=== PATIENT | female | born 1930 | race Caucasian/White ===

== ENCOUNTER 2018-04-21 14:57 | Inpatient (IN) | payer OTHER ==
[2018-04-21] MEDS ORDERED: NS 500 ML IV ONE (15:00)
--- NOTE | 2018-04-21 15:06 | EDPHY ---
H & P Time Seen by Provider: 04/21/18 14:59 HPI/ROS: HPI Stroke alert. 87-year-old female by ambulance. This patient was at a congregation service. Last seen normal at 1:10 p.m.. Bystanders report left-sided weakness, speech difficulty and confusion. On arrival to the emergency department per EMS she is clearly improving. Blood glucose per EMS 152. EMS also reports the patient is in atrial fibrillation. She is not on anticoagulation medications. She does not have a known history of atrial fibrillation. ROS: Constitutional: No fever, no chills. As above. Eyes: No discharge. No changes in vision. ENT: No sore throat. No nasal congestion or rhinorrhea. Respiratory: No cough. No shortness of breath. Cardiac: No chest pain, no palpitations. Gastrointestinal: No abdominal pain, no vomiting, no diarrhea. Genitourinary: No hematuria. No dysuria or increased frequency with urination. Musculoskeletal: No back pain. No neck pain. No myalgias or arthralgias. Skin: No rashes. Neurological: No headache. As above. Past medical history: Prior stroke. Takes Plavix. Osteoporosis, spinal surgeries. Social history: Nonsmoker. No alcohol. Has a daughter who lives nearby. Physical Exam: General Appearance: Alert, no distress. This patient is responding to questions appropriately and in full sentences. This patient appears well- hydrated and well-nourished. Eyes: Pupils equal and round no pallor or injection. No lid edema, erythema or injection. ENT, Mouth: Mucous membranes are moist. The pharyngeal tissues are unremarkable. No edema or swelling. No asymmetry suggestive of abscess. No erythema or exudates. No tongue lacerations or abrasions. Respiratory: There are no retractions, lungs are clear to auscultation with good air movement bilaterally. Cardiovascular: Regular rate and rhythm. No murmur. Gastrointestinal: Abdomen is soft and nontender, no masses, bowel sounds normal. No focal tenderness at McBurney's point. No See sign. Neurological: Motor sensory function is grossly intact. Cranial nerves are normal. Cerebellar function is normal. Skin: Warm and dry, no rashes. Musculoskeletal: Neck is supple and nontender. Extremities are symmetrical. All joints range without pain or impingement. Psychiatric: No agitation. No depression. Database: EKG: EKG time is 3:51 p.m.; EKG shows a narrow complex atrial fibrillation with a ventricular rate of 126. Left ventricular hypertrophy noted by voltage. The QRS , intervals are within normal limits. QT interval is as prolonged at 5:29 a.m. Corrected. Some T-wave flattening in the anterior leads. There are no ST-T wave changes indicative of ischemic or injury pattern. No evidence of right heart strain. Interpreted by me. Imaging: CT head without contrast: Old infarcts. No acute pathology. Results were discussed with staff radiologist Dr. Karsten Paniagua. CTA of head and neck: Essentially negative. Please see report by Dr. Wagner Urbano. Procedures: Emergency department course: Triage vital signs reviewed. I met this patient immediately on arrival. Initial neurologic exam demonstrates mild left upper extremity weakness and left lower extremity weakness. Patient's speech and cognition close to baseline at this time. Patient is currently not a tPA candidate. Patient otherwise stable for CT imaging as noted above. She was sent for CT immediately after my initial evaluation. 3:30 p.m., the patient is back in her room. Her daughter is currently at her bedside. The daughter explained to me that she spoke to the patient at approximately 1:10 p.m. While the patient was at congregation. The daughter reports that she was having slurred speech and word-finding difficulty. This is similar to how she presented with her previous stroke. At this time, the patient has no focality and repeat neurologic Assessment. She is responding to questions appropriately and in full sentences with clear speech. The daughter denies significant sequelae from her previous CVA. 4:00 p.m., spoke with on-call neurologist Dr. Suarez. Case discussed in detail with him. He requests a diffusion-weighted MRI of the brain be obtained. This will be ordered. 4:10 p.m., spoke with on-call hospitalist Dr. Hank Sandhu. Case discussed in detail. He accepts this patient for admission. He will coordinate neurology consultation. The patient's remaining emergency department course under my care has been uneventful. Repeat neurologic Assessment at 4:15 p.m. Is nonfocal. She was admitted to the hospitalist service in stable condition. Hospitalist to follow up on results of MRI. This is pending currently. Differential Diagnosis: The differential diagnosis on this patient includes but is not limited to CVA, TIA, dehydration, hyponatremia, hypoglycemia. This represents a partial list of diagnoses considered. These considerations are based on history, physical exam, past history, reassessment and diagnostic testing. Constitutional: Initial Vital Signs Heart Rate 105 H 04/21/18 15:26 Respiratory Rate 18 04/21/18 15:26 Blood Pressure 133/87 H 04/21/18 15:26 O2 Sat (%) 92 04/21/18 15:26 O2 Delivery Mode Room Air Allergies/Adverse Reactions: amoxicillin Allergy (Verified 04/21/18 16:00) Home Medications: Medication Instructions Recorded Albuterol [Proventil Inhaler HFA 2 puffs IH 04/21/18 (*)] Atenolol [Tenormin 50 mg (*)] 50 mg PO DAILY 04/21/18 Atorvastatin Calcium [Lipitor 40 40 mg PO DAILY 04/21/18 mg (*)] Clopidogrel Bisulfate [Plavix (*)] 75 mg PO DAILY 04/21/18 Flunisolide Nasal [Nasarel Nasal 2 sprays NS BID 04/21/18 [place] (RX)] Furosemide [Lasix 20 MG (*)] 20 mg PO DAILY 04/21/18 Hydrocodone/Acetaminophen [Centre 1 each PO BID PRN 04/21/18 5/325 (*)] Lisinopril [Zestril 20 mg (*)] 20 mg PO DAILY 04/21/18 Multivitamins [Multivitamin (*)] 1 each PO DAILY 04/21/18 Ranitidine HCl [Zantac] 150 mg PO HS 04/21/18 Medical Decision Making - Data Points Laboratory Results: Laboratory Results 04/22/18 04:18 04/22/18 04:18 Medications Given: Acetaminophen (Tylenol) 650 mg PO Q4HRS PRN PRN Reason: Pain, Mild/Fever, Can Take PO Stop: 10/18/18 16:32 Last Admin: 04/22/18 20:26 Dose: 650 mg Albuterol (Proventil Inhaler) 2 puffs IH [facility] Stop: 10/18/18 20:59 Last Admin: 04/22/18 22:03 Dose: 2 puffs Atorvastatin Calcium (Lipitor) 40 mg PO DAILY [facility] Stop: 10/19/18 08:59 Last Admin: 04/22/18 09:03 Dose: 40 mg Clopidogrel Bisulfate (Plavix) 75 mg PO DAILY [facility] Stop: 10/19/18 08:59 Last Admin: 04/22/18 09:04 Dose: 75 mg Enoxaparin Sodium (Lovenox) 40 mg SC DAILY [facility] Stop: 10/19/18 08:59 Last Admin: 04/22/18 09:04 Dose: 40 mg Famotidine (Pepcid) 20 mg PO HS [facility] Stop: 10/18/18 20:59 Last Admin: 04/22/18 20:29 Dose: 20 mg Flunisolide (Nasarel Nasal [place]) 2 sprays NS BID [facility] Stop: 10/18/18 20:59 Last Admin: 04/22/18 21:56 Dose: 2 sprays Furosemide (Lasix) 20 mg PO DAILY [facility] Stop: 10/19/18 08:59 Last Admin: 04/22/18 09:03 Dose: 20 mg Lisinopril (Zestril) 20 mg PO DAILY [facility] Stop: 10/19/18 08:59 Last Admin: 04/22/18 09:03 Dose: 20 mg Multivitamins (Tab-A-Jose Raul) 1 each PO DAILY [facility] Stop: 10/19/18 08:59 Last Admin: 04/22/18 09:03 Dose: 1 each Discontinued Medications Sodium Chloride (Ns) 500 mls @ 500 mls/hr IV EDNOW ONE PRN Reason: Protocol Stop: 04/21/18 15:59 Last Admin: 04/21/18 16:09 Dose: 500 mls Sodium Chloride (Ns) 500 mls @ 0 mls/hr IV ONCE ONE PRN Reason: Wide Open Stop: 04/23/18 00:01 Last Admin: 04/23/18 01:14 Dose: Not Given Metoprolol Tartrate (Lopressor) 12.5 mg PO BID ALAN Stop: 10/18/18 20:59 Last Admin: 04/22/18 09:03 Dose: 12.5 mg Metoprolol Tartrate (Lopressor) 12.5 mg PO ONCE ONE Stop: 04/21/18 18:15 Last Admin: 04/21/18 18:36 Dose: 12.5 mg Metoprolol Tartrate (Lopressor) 25 mg PO BID ALAN Stop: 10/19/18 20:59 Last Admin: 04/22/18 20:27 Dose: 25 mg Metoprolol Tartrate (Lopressor) 12.5 mg PO ONCE ONE Stop: 04/22/18 21:46 Last Admin: 04/22/18 21:49 Dose: 12.5 mg Point of Care Test Results: Chemistry 04/21/18 15:03 POC Sodium 135 mEq/L mEq/L (135-145) POC Potassium 3.9 mEq/L mEq/L (3.3-5.0) POC Chloride 97 mEq/L mEq/L (97-110) POC BUN 15 mg/dL mg/dL (7-23) POC Creatinine 1.1 mg/dL H mg/dL (0.6-1.0) POC Glucose 131 mg/dL H mg/dL (70-100) ISTAT H&H 04/21/18 15:03 POC Hgb 13.9 gm/dL gm/dL (12.6-16.3) POC Hct 41 % % (38-47) Departure - Departure Disposition: [facility] Inpatient Acute Clinical Impression: TIA (transient ischemic attack), Possible CVA
[2018-04-21 15:16] LABS: PLATELET COUNT 285 10^3/uL (150-400)
[2018-04-21] MEDS ORDERED: ONDANSETRON 4 MG/2 ML VIAL IVP PRN (16:33)
[2018-04-21] MEDS ORDERED: ONDANSETRON DISINTEGRATING 4 MG TAB PO PRN (16:33)
--- NOTE | 2018-04-21 17:03 | GHP ---
DATE OF ADMISSION: 04/21/2018 CHIEF COMPLAINT: Possible stroke. HISTORY OF PRESENT ILLNESS: This is an 87-year-old female with a history of multiple CVAs in the pas t, who presents with symptoms that she was concerned represented a stroke. She felt a little clumsy this morning. She then went to scientology. The pizza cook noticed that she was having trouble speaking, malorie s, she called 911. She denies any confusion. She just says she was unable to get the words out. Sh honorio did not feel as though she were weak or clumsy on one side. Specifically, she just felt as though she were clumsy in general. Her initial blood glucose was 150 by EMS. Her symptoms resolved complet roseann shortly after arriving in the emergency department. These symptoms are similar to her previous s trokes. She did receive tPA approximately in 2016 for stroke. She is currently taking Plavix, she h ad previously been on both aspirin and Plavix, however, self discontinued the aspirin after multiple episodes of epistaxis. She has no history of atrial fibrillation. She has had monitors in the past. Looking for this, however, it had never been identified. She is not currently having any chest diana n or shortness of breath. PAST MEDICAL/SURGICAL HISTORY: 1. History of multiple CVAs. 2. Osteoporosis. 3. Degenerative disk disease status post 5 spinal surgeries. 4. Hard of hearing. MEDICATIONS: Please see medication reconciliation. ALLERGIES: Amoxicillin. SOCIAL HISTORY: She drinks wine occasionally. She has never smoked. FAMILY HISTORY: Multiple vascular diseases in her family. REVIEW OF SYSTEMS: 10-point review of systems is conducted and is negative except per HPI. PHYSICAL EXAM: VITAL SIGNS: Blood pressure 124/90, heart rate 109, respiration rate 16, saturating 94% on room air. GENERAL: The patient is a very pleasant female who is resting comfortably, in bed. No acute distress. HEENT: Shows her to be normocephalic, atraumatic. CARDIOVASCULAR: Shows her to be irregularly irregular. There are no murmurs, rubs, or gallops. PULMONARY: Shows her to be br eathing comfortably. Her lungs are clear to auscultation bilaterally. ABDOMEN: Soft, nontender, no ndistended. SKIN: Shows no rash. : Exam shows no Campos. NEUROLOGIC: Shows her to be alert and oriented x3. She is mildly hard of hearing. She has no facial droop. Strength is intact in the up per and lower extremities. Sensation to light touch is intact in the upper and lower extremities. S he has no pronator drift. She is able to repeat simple phrases. PSYCHIATRIC: Shows a normal mood a nd affect. LABS: Basic metabolic panel is normal. Creatinine is 1.0. CBC is normal. DATA: 1. Head and neck CT angiogram show minimal bilateral carotid bulb plaque with nothing acute. Her ve rtebral arteries are patent. Her intracranial circulation is normal. 2. Head CT with noncontrast shows moderate atrophy, notably she has remote subcortical infarct in th e left posterior frontal and left anterior parietal lobes with encephalomalacia and gliosis. 3. ECG shows atrial fibrillation. Ventricular rate is just over 100. She has no significant ST abn ormalities or T-wave inversions. IMPRESSION AND PLAN: 1. Neurologic deficits: This could be new stroke versus recrudescence of her previous deficits. Sy mptoms have resolved. She was not a tPA candidate given the quick resolution of symptoms. I agree w ith MRI of her brain to further evaluate a new acute event. Neurology will consult. 2. Atrial fibrillation: Per report, this is new. Because of this, she will need anticoagulation, w carolyn I will defer until tomorrow. Would hold her aspirin and Plavix at this point. I will start her on a small dose of metoprolol 12.5 p.o. b.i.d. given her mild tachycardia. Could consider cardiover jorge tomorrow if she does not convert on her own. We will follow her on telemetry. 3. Echocardiogram has been ordered. 4. Code status: She would like to be Do Not Resuscitate. She clearly understands what this means. 5. Venous thromboembolism risk is high. I have started her on Lovenox. Discontinue this if she sta rts anticoagulation soon. /[id number]/MODL
[2018-04-21] MEDS ORDERED: METOPROLOL TARTRATE 25 MG TAB PO ONE (18:14)
[2018-04-21 19:08] LABS: INR 1.03 (0.83-1.16); PROTIME(PATIENT) 13.7 SEC (12.0-15.0)
[2018-04-21] MEDS ORDERED: HYDROCODONE/APAP 5/325 TAB PO PRN (19:43)
[2018-04-21] MEDS: METOPROLOL TARTRATE 25 MG TAB PO SCH (20:50)
[2018-04-21] MEDS: FAMOTIDINE 20 MG TAB PO SCH (20:51)
[2018-04-21] MEDS: ALBUTEROL 60 PUFFS/8 GM MDI IH SCH (22:06)
--- NOTE | 2018-04-21 23:05 | CPEKG ---
Test Reason : OPEN Blood Pressure : / mmHG Vent. Rate : 126 BPM Atrial Rate : 155 BPM P-R Int : 165 ms QRS Dur : 081 ms QT Int : 365 ms P-R-T Axes : 000 -16 017 degrees QTc Int : 529 ms Atrial fibrillation LVH by voltage Borderline T abnormalities, anterior leads Prolonged QT interval Confirmed by Juan Carlos Rae ([id number]) on 04/21/2018 11:04:56 PM Referred By: Confirmed By:Juan Carlos Rae
[2018-04-22] MEDS: FLUNISOLIDE NASAL 200 SPRAYS/25 ML MDI NS SCH ×3 (01:11→21:56)
[2018-04-22] MEDS: ACETAMINOPHEN 325 MG TAB PO PRN ×3 (03:31→20:26)
[2018-04-22 05:18] LABS: PLATELET COUNT 253 10^3/uL (150-400)
[2018-04-22] MEDS: MULTIVITAMINS 1 EACH TAB PO SCH (09:03)
[2018-04-22] MEDS: METOPROLOL TARTRATE 25 MG TAB PO SCH (09:03)
[2018-04-22] MEDS: FUROSEMIDE 20 MG TAB PO SCH (09:03)
[2018-04-22] MEDS: ATORVASTATIN CALCIUM 40 MG TAB PO SCH (09:03)
[2018-04-22] MEDS: LISINOPRIL 20 MG TAB PO SCH (09:03)
[2018-04-22] MEDS: ENOXAPARIN 40 MG/0.4 ML SYR SC SCH (09:04)
[2018-04-22] MEDS: CLOPIDOGREL BISULFATE 75 MG TAB PO SCH (09:04)
--- NOTE | 2018-04-22 09:24 | NEUROPROG ---
Assessment: HOSPITAL NEUROLOGY CONSULT REQUESTING: Hank Sandhu MD REASON: stroke HPI: 87 year old woman with a history of HTN, HLD, prior stroke who presented to the ED yesterday with stroke-like symptoms. She states she woke up and was feeling clumsy. She can't identify anything focal, but felt unsteady sitting on her shower chair and dropped a box of animal crackers. She was feeling a bit better and went to jainism to volunteer. She states around 1300 she was having difficulty getting words out. She recognized this as a possible stroke, as she had similar issues with her prior stroke. By the time she got to the ED her symptoms resolved. She was not having any visual changes, sensory loss, hearing changes, vertigo, neglect. No CP, palpitations, SOB. She has underwent extensive investigation for afib with her past strokes with no abnormality identified. However, on this admission afib has been captured. She is maintained on clopidogrel, statin and lisinopril at home. ROS: As per the HPI, otherwise a complete 12 point ROS was performed and is negative ALLERGIES AND MEDS: As recorded in the EMR - reviewed and reconciled PFSH: As per the intake H&P by Dr. Sandhu from yesterday EXAM: VS reviewed in EMR GEN: WDWN laying in NAD HEENT: NCAT, sclera anicteric, conjunctiva not injected, MMM, oropharynx clear, no scalp tenderness NECK: supple, nontender, no meningismus CV: irreg irreg s1 s2 wo m/r/c/g. Carotid pulses 2+ wo bruit NEURO: MS: awake, alert, oriented to all spheres. Speech nondysarthric. No language disturbance. Follows commands. Attends to both sides. Recent/remote memory grossly intact. Mood euthymic. Good fund of knowledge. CN: pupils 3mm round and reactive. Unable to visualize fundi. VFF. Primary gaze centered. Restricted upgaze. Facial sensation preserved. Face symmetric. Hearing grossly intact to finger rub. Palatoglossal movements intact. Shoulder shrug and head turn strong. MOTOR: normal bulk/tone. No adventitial movements. Full power throughout. SENSORY: symmetric LT/PP in all extremities. No extinction. COORD: no ataxia FN/HS. Erik preserved. REFLEX: plantars down. No clonus. Absent ankle jerks, other DTRS 2/4. GAIT: deferred to PT safety eval DATA REVIEW: Labs reviewed in EMR PERSONALLY INTERPRETED RESULTS AND DATA: MRI brain wo - acute cortically-based infarcts in the right frontoparietal and temporal lobes. Chronic infarcts in the left posterior frontal and posterior parietal regions. Chronic microvascular ischemic changes in the white matter. CTA head/neck - mild calcification of the carotid bulbs, but no hemodynamically significant stenoses LDL 23 TTE pending IMPRESSION AND RECOMMENDATIONS: // ACUTE ISCHEMIC STROKE Patient with stroke and rapidly resolving deficits. Given cortical nature, prior contralateral cortical strokes and no vascular lesion on CTA, her strokes are very likely cardioembolic. Afib has been identified in-house. - cont clopidogrel - transition to AC in 10 days - cont statin - LDL at goal < 70 - cont permissive HTN today, can begin lowering to goal normotension tomorrow - goal normoglycemia with A1c at least < 6.5, avoid hypoglycemia - TTE today - further afib management per primary team - PT/OT/COUNSELOR/ART THERAPIST - stroke education - tele monitoring - follow up with PCP and neuro at [place] after discharge - will follow up TTE result today - if negative, then will sign off Objective: Vital Signs Temp Pulse Resp BP Pulse Ox 36.3 C 97 29 H 142/99 H 90 L 04/22/18 07:45 04/22/18 07:45 04/22/18 07:45 04/22/18 07:45 04/22/18 07:45 Laboratory Results 04/22/18 04:18 04/22/18 04:18 04/21/18 04/22/18 04/23/18 05:59 05:59 05:59 Intake Total 400 Output Total 1150 Balance -750 PT 13.7 SEC (12.0-15.0) 04/21/18 18:46 INR 1.03 (0.83-1.16) 04/21/18 18:46 Allergies/Adverse Reactions: amoxicillin Allergy (Verified 04/21/18 16:00)
--- NOTE | 2018-04-22 13:44 | HOSPPROG ---
Hospitalist Progress Note Assessment/Plan: Acute Ischemic Stroke- New, Acute - Presented with dysarthria, clumsiness, resolved upon presentation - MRI Brain performed which showed acute cortically based infarcts in R Frontoparietal and temporal lobes, -CTA Head/Neck performed which showed minimal b/l carotid bulb plaques - Likely cardioembolic in setting of newly identified A Fib - Neurology consulted who recommended continue plavix with transition to AC in 10 days, continue statin, TTE, f/u with PCP and neuro at [place] after d/c Atrial Fibrillation- New, Acute - Found to be in A Fib on presentation, no hx of A Fib, HR 80-120s - Low dose Metoprolol started on admission, will uptitrate as needed - Cardiology consulted this AM for management, possible cardioversion, will f/u their recs - Patient will need to be on AC, per neuro 10 days after CVA - TTE pending - Continue on telemetry Hx of CVA - MRI Brain showed chronic infarcts in L posterior frontal and posterior parietal regions - Continue home Plavix, Statin as above HLD - Continue statin HTN - Continue home Lisinopril 20 mg qd - Allow permissive HTN today per neuro, begin lowering to normotension tomorrow FEN: PRN PPx: Lovenox Diet: Regular Code: DNR Dispo: Pending clinical course Subjective: Patient reports no complaints this AM Objective: Vital Signs Temp Pulse Resp BP Pulse Ox 36.3 C 107 H 24 H 147/99 H 94 04/22/18 12:00 04/22/18 12:00 04/22/18 12:00 04/22/18 12:00 04/22/18 12:00 Laboratory Results 04/22/18 04:18 04/22/18 04:18 04/21/18 04/22/18 04/23/18 05:59 05:59 05:59 Intake Total 400 Output Total 1150 Balance -750 PT 13.7 SEC (12.0-15.0) 04/21/18 18:46 INR 1.03 (0.83-1.16) 04/21/18 18:46 - Physical Exam Constitutional: no apparent distress Eyes: PERRL Ears, Nose, Mouth, Throat: moist mucous membranes Cardiovascular: irregularly irregular, tachycardia Respiratory: no respiratory distress, clear to auscultation Gastrointestinal: soft, non-tender abdomen Genitourinary: no bladder tenderness Skin: warm Musculoskeletal: full muscle strength Neurologic: AAOx3 Psychiatric: interacting appropriately ICD10 Worksheet Patient Problems: Problems Problem Status Onset TIA (transient ischemic attack) Acute
--- NOTE | 2018-04-22 14:35 | ECHO ---
[email or web address] [place] [id number] Main: [phone] Fax: Transthoracic Echocardiogram Name: TETE ZAVALA MR#: [id number] Study Date: 04/22/2018 Study Time: 11:56 AM Date of : 1930 Age: 87 year(s) Height: 154.9 cm (61 in.) Weight: 54.43 kg (120 lb.) BSA: 1.52 m2 Gender: Female Examination: Echo Indication: new a fib Image Quality: Adequate Contrast: Requested by: Hank Sandhu BP: 142 mmHg/99 mmHg Heart Rate: Rhythm: Indication: new a fib Procedure Staff Wallcovering Texturer: Alejandra Alan [facility] Reading Physician: Joseph Marion MD Requesting Provider: Conclusions: Normal size left ventricle. No LV hypertrophy. Low normal left ventricular systolic function. No regional wall motion abnormality. Unable to assess diastolic dysfunction. Normal size right ventricle. The left atrium is severely dilated. The right atrium is normal in size. The mitral valve is normal in appearance and function. Severe mitral valve regurgitation is present. No mitral stenosis is present. The aortic valve is tri-leaflet. Aortic sclerosis is present. Mild to moderate aortic valve regurgitation. The tricuspid valve is normal in appearance and function. Mild to moderate tricuspid valve regurgitation. The pulmonary artery pressure is moderately increased. Right ventricular systolic pressure measures 58mmHg. The pulmonic valve is normal in appearance and function. Trivial pulmonic valve regurgitation. Normal size aortic root measuring 3.0 cm. Normal size ascending aorta measuring 3.5 cm. The IVC is normal sized. No pericardial effusion. The patient has severe mitral regurgitation with associated atrial fibrillaiton and left atrial enlargement as well as pulmonary hypertension. These findings are likely related to severe mitral valular heart disease. The most likely cause of a CVA in this patient is atrial fibrillation. Anticoagulation in full dose should be considered when the neurology service thinks it is safe to do so. Patient: TETE ZAVALA Study Date: 04/22/2018 Page 1 of 3 11:56 AM Measurements: Chambers Valvular Assessment AV/MV Valvular Assessment TV/PV Normal Normal Normal Name Value Range Name Value Range Name Value Range Ao [place] (2D): 3.0 cm (1.4 cm-2.6 AV Vmax: 1.32 m/s (1 m/s-1.7 TR Vmax: 3.63 mm/s ( - ) cm) m/s) TR PGmax: 53 mmHg ( - ) IVSd (2D): 1.2 cm (0.6 cm-1.1 AV maxP mmHg ( - ) syst. PAP: 58 mmHg ( - ) cm) AV meanP mmHg ( - ) PV Vmax: 0.73 m/s (0.6 m/s-0.9 LVDd (2D): 4.5 cm (3.9 cm-5.3 PATRICIA (VTI): 1.6 cm ( - ) m/s) cm) MV E Vmax: 1.01 m/s ( - ) PV PGmax: 2 mmHg ( - ) LVDs (2D): 3.7 cm (2.1 cm-4 MV meanP mmHg ( - ) cm) MV PHT: 0.042 s ( - ) LVPWd (2D): 1.0 cm ( - ) MVA (Vmax): 2.9 m/s ( - ) LVOTd 2.0 cm 2.0 cm mm MVA (PHT): 5.2 s ( - ) RVDd(2D): 3.4 cm (1.9 cm-3.8 cmmm) Continued Measurements: Chambers Valvular Assessment AV/MV Valvular Assessment TV/PV Name Value Name Value Name Value LADs: 3.9 cm MV DecTime: 144 m/s CVP (est.): 5 mmHg LADs Lon.5 cm MV VTI: 12.80 cm LA Area: 25.6 cm2 MR ERO: 0.280 cm2 LA Volume: 89 ml MR PISA radius: 8 mm LA Volume Index: 58.6 ml/m2 MR Reg. Volume: 48 ml RA Area: 19.2 cm2 Additional Vessels Name Value Ao Ascendin.5 cm Inferior Vena Cava: 2.0 cm Findings: Left Ventricle: Normal size left ventricle. No LV hypertrophy. Low normal left ventricular systolic function. No regional wall motion abnormality. Unable to assess diastolic dysfunction. Right Ventricle: Normal size right ventricle. Left Atrium: The left atrium is severely dilated. Right Atrium: The right atrium is normal in size. Mitral Valve: The mitral valve is normal in appearance and function. Severe mitral valve regurgitation is present. No mitral stenosis is present. Aortic Valve: The aortic valve is tri-leaflet. Aortic sclerosis is present. Mild to moderate aortic valve regurgitation. No aortic valve stenosis is present. Tricuspid Valve: The tricuspid valve is normal in appearance and function. Mild to moderate tricuspid valve regurgitation. The pulmonary artery pressure is moderately increased. Right ventricular systolic pressure measures 58mmHg. Pulmonic Valve: The pulmonic valve is normal in appearance and function. Trivial pulmonic valve regurgitation. Aorta: The aorta is normal. Normal size aortic root measuring 3.0 cm. Normal size ascending aorta measuring 3.5 cm. IVC: Patient: TETE ZAVALA Study Date: 04/22/2018 Page 2 of 3 11:56 AM The IVC is normal sized. Pericardium: No pericardial effusion. (No Signature Object) Patient: TETE ZAVALA Study Date: 04/22/2018 Page 3 of 3 11:56 AM [id number]
--- NOTE | 2018-04-22 16:00 | ASMTCMCOM ---
CM Note CM Note Notes: Pt with history multiple CVAs came to ED with possible TIA. Symptoms resolved at arrival and afib indicated. Neurology consulting. 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 Pt resides alone and has dghtr in [place]. CM to follow for d/c planning. Date Signed: 04/22/2018 03:59 PM Electronically Signed By:NATHALIA Hicks
--- NOTE | 2018-04-22 16:31 | PDMN ---
Medical Necessity Medical necessity: MCG: M83 stroke: ischemic 2 days: acute ischemic stroke: new, with afib, acute-new, cardiology consult pend., further eval and monitoring needed > 2 MN. status changed to INPT 04/22
[2018-04-22] MEDS: FAMOTIDINE 20 MG TAB PO SCH (20:29)
[2018-04-22] MEDS ORDERED: METOPROLOL TARTRATE 25 MG TAB PO SCH (21:00)
[2018-04-22] MEDS ORDERED: METOPROLOL TARTRATE 25 MG TAB PO ONE (21:45)
[2018-04-22] MEDS: ALBUTEROL 60 PUFFS/8 GM MDI IH SCH (22:03)
[2018-04-23] MEDS ORDERED: NS 500 ML IV ONE
--- NOTE | 2018-04-23 05:50 | GCON ---
CARDIOLOGY CONSULTATION REFERRING PHYSICIAN: Juan Soriano DO SUPERVISING CLINICAL UNIT EDUCATOR: Joseph Marion MD INDICATION FOR CARDIOLOGY CONSULTATION: New onset of atrial fibrillation with rapid ventricular response, history of CVA, new ischemic CVA. HISTORY OF PRESENT ILLNESS: Ms. Brock is an 87-year-old female with significant past history of multiple CVAs, hypertension, and asthma. She informs me yesterday, she had woke up in the morning feeling somewhat lightheaded and clumsy. 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 911 was called. She was brought immediately to [facility] Emergency Department. She does report to me that her symptoms soon subsided, but she did state that she was having problems finding words. Electrocardiogram done in the emergency department diagnosed with atrial fibrillation with rapid ventricular response, noting ventricular rate at 126 beats per minute. She was noted to have borderline T-wave abnormalities in anterior leads. The patient has undergone brain MRI, which noted acute cortical ischemic infarction in the right supra frontal with suspected emboli. She has been evaluated by Neurology. At this time, she reports no neurological deficits. She reports no history of chest pain or pressure. Reports has had history of episodes of "accelerated heart rate" that come on briefly, but feels like they have not lasted significant amount time. No associated symptoms with her palpitations. She denies any orthopnea, PND, edema, near-syncope, or syncopal events. She reports prior to yesterday she had been in normal state of health. Her primary care provider is at [place]. PAST MEDICAL HISTORY: Includes patient stated prior CVAs x2, hypertension, asthma, osteoporosis, degenerative disk disease, and hard of hearing. PAST SURGICAL HISTORY: Includes 4 back surgeries, appendectomy, T and A as a child, cataract surgery, rhino surgery for a fractured nose. SOCIAL HISTORY: She denies ever smoking. She occasionally drinks wine, denies any illicit drugs. FAMILY HISTORY: She does report significant family history of hypertension, but denies any significant family history of heart disease. ALLERGIES: Patient has allergy to amoxicillin. HOME MEDICATIONS: Include a multivitamin p.o. daily. [place] 5/325, 1 tablet p.o. twice daily p.r.n. Lasix 20 mg p.o. daily. nasal spray, 2 sprays NS PID. Zantac 150 mg p.o. HS. Albuterol 2 puffs inhaled HS. Lisinopril 20 mg p.o. daily. Clopidogrel 75 mg p.o. daily. Atorvastatin 40 mg p.o. daily. Atenolol 50 mg p.o. daily. REVIEW OF SYSTEMS: A 10-point review of systems done on this patient all negative except as mentioned above. PHYSICAL EXAMINATION: GENERAL APPEARANCE: Elderly female. She is thin, she is alert and oriented to person, place, time, situation. Appears to be in no acute distress. VITAL SIGNS: Current blood pressure of 147/99, heart rate of 107, atrial fibrillation on the monitor. Respirations 24, saturating 94 % on room air. Temperature 36.3 degrees Celsius. HEENT: Head is normocephalic. Lips and tongue are pink and moist with no signs of cyanosis. Conjunctivae pink. NECK: Trachea is midline, +2 carotid pulses bilateral, no auscultated bruits, no jugular vein distention. RESPIRATORY: Lungs are clear to auscultation, no rhonchi, rales or wheezes. No accessory muscle use. No intercostal muscle retraction. CARDIAC: Irregular rate, irregular rhythm, S1, S2, 2/6 systolic murmur along left sternal border. ABDOMEN: Soft, nontender, bowel sounds x4 quadrants, no organomegaly, no palpable masses. SKIN: [place], warm, dry, no cyanosis, no clubbing, trace pedal edema bilateral lower extremities. VASCULAR: +2 carotids bilateral, +2 radials bilateral, +1 dorsal pedal and posterior tibial pulses bilateral. LABORATORY STUDIES: Laboratory studies drawn today showed WBC of 8.30, hemoglobin 11.7, hematocrit of 34.6, platelet count of 253. INR 1.03. Sodium 135, potassium 3.9, chloride 104, CO2 20, BUN 12, creatinine 0.8, glucose 109, calcium 9.0, troponin less than 0.012. Triglycerides 66, total cholesterol 119. HDL 83, LDL 23. TSH 4.40 STUDIES: Electrocardiogram as mentioned above. Head CTA done on April 21, showing moderate atrophy, no hemorrhages, mass effect or definitive acute luke infarction, moderate to extensive nonspecific hypodensity in the white matter bilateral cerebral hemispheres. Remote subcortical infarctions left posterior frontal and left anterior partial lobes with encephalomalacia and gliosis. Head CTA showing normal intercranial artery circulation, no evidence of embolic disease or aneurysm. Patent venous system. Neck CTA showing minimal bilateral carotid bulb plaque, no acute disease. No flow limiting disease, no ulcerative plaque, widely patent vertebral arteries. Brain MRI, as mentioned above. Echocardiogram done today showing normal LV size, no LVH. Low normal LV systolic function. Normal RV size. LA is severely dilated. RA is normal size. Mitral valve appears normal in function. Severe MR was noted. No MS. Aortic sclerosis is present, jqdr-hp-evghjjai AI, mild to moderate TR, RVSP estimated at 58 mmHg, trivial ID. ASSESSMENT/PLAN: 1. Paroxysmal atrial fibrillation. Per patient, this is a new onset for disease. More than likely potential cause for her embolic stroke. She is noted to have a dilated left atrium. She is better rate controlled, has recently been started on metoprolol, but does show varying rates between 90 and 120 beats per minute. She denies any lightheadedness, near-syncope or syncopal events. She was noted to have normal TSH of 4.40. She has a significant CHADS- Vasc score of at least 6, (age, sex, hypertension, previous CVA). Neurology has recommended patient not be started on full anticoagulation for at least 10 days. Continue on clopidogrel. At this time, due to Neurology recommendation, I do not recommend that we attempt to cardiovert her either electrically or chemically. [place] goal would be to rate control her. She is noted to be mildly improved with the starting of low-dose metoprolol; I will increase the dose to 25 mg p.o. twice daily. She will remain on clopidogrel for the next 10 days, with ideal of transitioning over to full anticoagulation after 10 days from her CVA.. We have had a significant discussion with the patient and her daughter about risks and benefits of warfarin and oral anticoagulation. They verbalize understanding and are wanting to proceed. I have suggested that upon hospital discharge, they see her PCP, and be immediately referred to [facility], for the starting of anticoagulation at the scheduled 10-day interval post cerebrovascular accident per neurology's recommendation. Once she is fully anticoagulated, and if she remains in atrial fibrillation, consideration of MARTHA cardioversion can be made at that time. 2. Cerebrovascular accident: Patient reports no gross motor deficits. MRI suggest possibly more likely embolism, stating cause of atrial fibrillation. Defer management to Neurology. 3. Mitral regurgitation: Noted to have significant mitral regurgitation on echocardiogram today. She appears fairly euvolemic. She has been resumed on home dose of Lasix. Potentially mitral regurgitation will improve with buddhism of normal sinus rhythm, Recommend re-evaluation if cardioversion is done in the future by [facility]. 4. Hypertension: Per neurology's recommendation, allowing permissive hypertension for the next 2 days, with plans of attempting to get normotensive tomorrow. Metoprolol dosage as mentioned above. She has been started on home dose of lisinopril, will evaluate tomorrow, and adjust as necessary. 5. Hyperlipidemia: She has had a fasting lipid done, which shows adequate suppression of LDL, no change in current medications. Thank you for this consultation. We will be glad to follow along with you. /[id number]/MODL MTDD
[2018-04-23] MEDS: METOPROLOL TARTRATE 50 MG TAB PO SCH ×2 (10:12→20:17)
[2018-04-23] MEDS: ATORVASTATIN CALCIUM 40 MG TAB PO SCH (10:13)
[2018-04-23] MEDS: FUROSEMIDE 20 MG TAB PO SCH (10:13)
[2018-04-23] MEDS: MULTIVITAMINS 1 EACH TAB PO SCH (10:13)
[2018-04-23] MEDS: CLOPIDOGREL BISULFATE 75 MG TAB PO SCH (10:13)
[2018-04-23] MEDS: LISINOPRIL 20 MG TAB PO SCH (10:14)
[2018-04-23] MEDS: ENOXAPARIN 40 MG/0.4 ML SYR SC SCH (10:20)
[2018-04-23] MEDS: FLUNISOLIDE NASAL 200 SPRAYS/25 ML MDI NS SCH ×2 (11:26→20:20)
--- NOTE | 2018-04-23 12:21 | HOSPPROG ---
Hospitalist Progress Note Assessment/Plan: Acute Ischemic Stroke- New, Acute - Presented with dysarthria, clumsiness, resolved upon presentation - MRI Brain performed which showed acute cortically based infarcts in R Frontoparietal and temporal lobes, -CTA Head/Neck performed which showed minimal b/l carotid bulb plaques - Likely cardioembolic in setting of newly identified A Fib - Neurology consulted who recommended continue plavix with transition to AC in 10 days, continue statin, TTE, f/u with PCP and neuro at [place] after d/c Atrial Fibrillation- New, Acute - Found to be in A Fib on presentation, no hx of A Fib, HR 80-120s - Low dose Metoprolol started on admission - Cardiology consulted who recommended increasing Metoprolol to 50 mg BID for rate control - Patient will need to be on AC with CHADsVASC of 6, per neuro 10 days after CVA - Continue on telemetry Hx of CVA - MRI Brain showed chronic infarcts in L posterior frontal and posterior parietal regions - Continue home Plavix, Statin as above HLD - Continue statin HTN - Continue home Lisinopril 20 mg qd - Allow permissive HTN per neuro, begin lowering to normotension today FEN: PRN PPx: Lovenox Diet: Regular Code: DNR Dispo: Pending clinical course Subjective: Patient reports episode of palpitations overnight Objective: Vital Signs Temp Pulse Resp BP Pulse Ox 37.1 C 110 H 24 H 147/112 H 94 04/23/18 11:29 04/23/18 11:29 04/23/18 11:29 04/23/18 11:29 04/23/18 11:29 04/22/18 04/23/18 04/24/18 05:59 05:59 05:59 Intake Total 1090 Output Total 300 Balance 790 PT 13.7 SEC (12.0-15.0) 04/21/18 18:46 INR 1.03 (0.83-1.16) 04/21/18 18:46 - Physical Exam Constitutional: no apparent distress Eyes: PERRL Ears, Nose, Mouth, Throat: moist mucous membranes Cardiovascular: irregularly irregular, tachycardia Respiratory: no respiratory distress, clear to auscultation Gastrointestinal: soft, non-tender abdomen Genitourinary: no bladder fullness Skin: warm Musculoskeletal: no muscle tenderness Neurologic: AAOx3 Psychiatric: interacting appropriately ICD10 Worksheet Patient Problems: Problems Problem Status Onset TIA (transient ischemic attack) Acute
--- NOTE | 2018-04-23 15:01 | PDCARPN ---
Cardiology Progress Note Chief Complaint: Patient reports fatigue. Assessment/Plan: Assessment: 87-year-old female with significant past history of multiple CVAs, hypertension , and asthma. Admitted on 04/22/2018 for 1st slurred speech lightheadedness and , seen his. MRI noted acute cardial ischemic infarction in the right supra fontanelle with suspected emboli. Noted to be in AFib with RVR. Patient reports no neural deficits. Patient with significant chads Vasc score of 6. Neurology has recommended not starting full anticoagulation for the next 10 days. Continue on home dose of clopidogrel. Echocardiogram did note low- normal LV systolic function, no wall motion abnormalities, valvular heart disease including severe MR, ezvx-hx-icmdvzcd AI, yugt-eb-vibcuhen TR RVSP was estimated at 58 mm Hg. 04/23/2018: Patient has been up in walking, noted elevated heart rates overnight , we rates up to 130, despite increasing metoprolol tartrate to 25 mg p.o. Twice daily. She denies of any chest pressure or pain. She appears to be fairly euvolemic on physical examination. 1. Paroxysmal atrial fibrillation: Patient's 1st event, more likely cause of embolic stroke. Noted to have dilated LA. TSH within normal limits. 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 Increase metoprolol stay tartrate to 50 mg p.o. Twice daily. Noted mild improvement this afternoon after dose taken at 10:30 a.m.. Continue to monitor, if no improvement, consideration of starting on diltiazem also. Per neurology's recommendation, patient should not be fully anticoagulated for at least 10 days post CVA. Due to this, patient is not a candidate for cardioversion either electrically or chemically. After 10 days or up, ideally patient should be started on full oral anticoagulation either warfarin or NOAC. She will be seen by her regular healthcare team of [facility] upon discharge, for decision of which anticoagulation to use. 2. CVA: Patient reports no gross motor deficit. Defer management to hospitalist and Neurology. 3. Mitral regurgitation: Significant MR noted on echocardiogram. Patient appears to be euvolemic. Resumed on home dose of Lasix. Potentially MR may improve with rate store a campbell of sinus rhythm. Recommend repeating echo at if patient is cardioverted in the future. 4. Hyperlipidemia: Patient has been resumed on home statin. Laboratory studies show adequate suppression of LDL. 5. Hypertension: Blood pressure is elevated this morning, increased metoprolol tartrate as mentioned above. Continue on home dose of lisinopril and Lasix. Adjust as needed. 04/23/18 15:00 Subjective: Patient denies of any chest pressure or pain. Reports no lightheadedness, orthopnea, PND, edema, near-syncope or syncopal events. Reports mild SOB with exertion. Reviewed/Discussed With: hospitalist (Dr Soriano), other (Dr Marion) Objective: Vital Signs (8 Hrs) Temp Pulse Resp BP Pulse Ox 04/23/18 14:51 108 H 16 149/103 H 93 04/23/18 12:42 36.8 C 100 14 130/105 H 95 04/23/18 11:29 37.1 C 110 H 24 H 147/112 H 94 04/23/18 10:55 118 H 16 138/101 H 95 04/23/18 10:14 172/99 H 04/23/18 10:12 119 H 172/99 H 04/23/18 07:54 36.6 C 107 H 33 H 172/99 H 92 Intake/Output (24 Hrs) 04/22/18 04/23/18 04/24/18 05:59 05:59 05:59 Intake Total 1090 Output Total 300 Balance 790 Intake: Oral (ml) 1090 Output: Urine (ml) 300 Toilet 300 Other: Intake Quantity Yes Sufficient Number of Voids Toilet 1 Bladder Scan Volume (ml) Toilet 282 Result Diagrams: 04/22/18 04:18 04/22/18 04:18 - Physical Exam Constitutional: WDWN, no apparent distress Ears, Nose, Mouth, Throat: moist mucous membranes Cardiovascular: systolic murmur (2/6 left sternal border), irregularly irregular , jugular vein distention (4-5 cm above sternal notch), pulses symmetric bilat, No carotid bruit Peripheral Pulses: 1+: dorsalis-pedis (R), dorsalis-pedis (L), 2+: carotid (R), carotid (L) Respiratory: clear to auscultate bilat, no crackles, no wheezes Gastrointestinal: normoactive bowel sounds Skin: warm Neurologic: AAOx3 Psychiatric: cooperative, interactive, following commands ICD10 Worksheet Patient Problems: Problems Problem Status Onset TIA (transient ischemic attack) Acute
--- NOTE | 2018-04-23 15:52 | ASMTCMCOM ---
CM Note CM Note Notes: PT rec HHC vs. d/c to dghtr home. Spoke with pt and dghtr [place] about PT rec, pt amenable to d/c to dghtr home in [place] for a few days for supervision. Pt and dghtr will discuss HHC PT and let CM know if they are interested. [facility] and then transition the service to her home in [place]. CM to follow. Date Signed: 04/23/2018 03:51 PM Electronically Signed By:NATHALIA Hicks
[2018-04-23] MEDS: FAMOTIDINE 20 MG TAB PO SCH (20:17)
[2018-04-23] MEDS: MELATONIN 3 MG TAB PO PRN (20:17)
[2018-04-23] MEDS: ALBUTEROL 60 PUFFS/8 GM MDI IH SCH (21:33)
[2018-04-24] MEDS: ENOXAPARIN 40 MG/0.4 ML SYR SC SCH (09:24)
[2018-04-24] MEDS: ATORVASTATIN CALCIUM 40 MG TAB PO SCH (09:25)
[2018-04-24] MEDS: MULTIVITAMINS 1 EACH TAB PO SCH (09:25)
[2018-04-24] MEDS: CLOPIDOGREL BISULFATE 75 MG TAB PO SCH (09:25)
[2018-04-24] MEDS: FUROSEMIDE 20 MG TAB PO SCH (09:25)
[2018-04-24] MEDS: METOPROLOL TARTRATE 50 MG TAB PO SCH ×2 (09:27→20:33)
[2018-04-24] MEDS: LISINOPRIL 20 MG TAB PO SCH (09:27)
[2018-04-24] MEDS: DILTIAZEM 30 MG TAB PO SCH ×3 (09:28→18:10)
[2018-04-24] MEDS: FLUNISOLIDE NASAL 200 SPRAYS/25 ML MDI NS SCH ×2 (09:29→20:35)
--- NOTE | 2018-04-24 13:04 | PDCARPN ---
Cardiology Progress Note Chief Complaint: Patient reports she has had very little sleep during the night. Assessment/Plan: Assessment: 87-year-old female with significant past history of multiple CVAs, hypertension , and asthma. Admitted on 04/22/2018 for 1st slurred speech lightheadedness and , seen his. MRI noted acute cardial ischemic infarction in the right supra fontanelle with suspected emboli. Noted to be in AFib with RVR. Patient reports no neural deficits. Patient with significant chads Vasc score of 6. Neurology has recommended not starting full anticoagulation for the next 10 days. Continue on home dose of clopidogrel. Echocardiogram did note low- normal LV systolic function, no wall motion abnormalities, valvular heart disease including severe MR, rbrk-su-farykgkn AI, wrme-ft-hbeobehx TR RVSP was estimated at 58 mm Hg. 04/24/2018: She reports no chest pain pressure or symptoms suggesting ischemia. Reports no significant shortness of breath. Last evening, despite recent increase in metoprolol tartrate, she continues to have elevated heart rates. Started on diltiazem 30 mg p.o. Q.8 hours, 1st dose was given at this a.m.. A significant improvement in heart rate noted this morning. Continuous cardiac monitoring showing AFib with occasional PVC. No malignant arrhythmia or pauses noted. 1. Paroxysmal atrial fibrillation: Patient's 1st event, more likely cause of embolic stroke. Noted to have dilated LA. TSH within normal limits. Rate continue to be tachy 100-130 last evening despite increasing metoprolol dosage. Added diltiazem 30 mg p.o. Q.8 hours, 1st dose this morning, with better control. Per neurology's recommendation, patient should not be fully anticoagulated for at least 10 days post CVA (until the 05/01-05/02). Due to this , patient is not a candidate for cardioversion either electrically or chemically. After 10 days, ideally patient should be started on full oral anticoagulation either warfarin or NOAC. She will be need to be seen by her regular healthcare team of [facility] upon discharge, for decision of which anticoagulation to use. After being anticoagulation, consideration can be made for cardioversion at that time. 2. CVA: Patient reports no gross motor deficit. Defer management to hospitalist and Neurology. 3. Mitral regurgitation: Significant MR noted on echocardiogram. Patient appears to be euvolemic. Resumed on home dose of Lasix. Potentially MR may improve with rate store a campbell of sinus rhythm. Recommend repeating echo at if patient is cardioverted in the future. 4. Hyperlipidemia: Patient has been resumed on home statin. Laboratory studies show adequate suppression of LDL. 5. Hypertension: Blood pressure elevated throughout the evening despite recent increase in metoprolol. Diltiazem started along with rest for medication regime. Noting mild improvement. Continue monitor. Adjust as necessary. 04/24/18 13:04 Subjective: She denies of any chest pressure, pain, shortness of breath, palpitations, lightheadedness, near-syncope or syncopal events. Reviewed/Discussed With: other (Dr Noel) Objective: Vital Signs (8 Hrs) Temp Pulse Resp BP Pulse Ox 04/24/18 12:00 36.9 C 109 H 32 H 145/91 H 93 04/24/18 10:48 36.9 C 92 20 128/90 H 93 04/24/18 08:00 37.0 C 101 H 26 H 159/103 H 94 04/24/18 06:45 95 Intake/Output (24 Hrs) 04/23/18 04/24/18 04/25/18 05:59 05:59 05:59 Intake Total 1090 350 Output Total 300 Balance 790 350 Intake: Oral (ml) 1090 350 Output: Urine (ml) 300 Toilet 300 Other: Intake Quantity Yes Yes Sufficient Number of Voids Toilet 1 1 1 Bladder Scan Volume (ml) Toilet 282 Result Diagrams: 04/22/18 04:18 04/22/18 04:18 - Physical Exam Constitutional: WDWN, no apparent distress Ears, Nose, Mouth, Throat: moist mucous membranes Cardiovascular: irregularly irregular, pulses symmetric bilat, No jugular vein distention, No carotid bruit Respiratory: clear to auscultate bilat, no crackles, no wheezes Gastrointestinal: normoactive bowel sounds, no tenderness Skin: no rashes, warm, No no edema (Trace pedal edema) Neurologic: AAOx3 Psychiatric: cooperative, interactive, following commands ICD10 Worksheet Patient Problems: Problems Problem Status Onset TIA (transient ischemic attack) Acute
--- NOTE | 2018-04-24 16:04 | ASMTCMCOM ---
CM Note CM Note Notes: Pt to be monitored on cardiac meds. D/c plan remains d/c to dghtr home and pt to decide if she wants [facility] Date Signed: 04/24/2018 04:02 PM Electronically Signed By:NATHALIA Hicks
--- NOTE | 2018-04-24 16:16 | HOSPPROG ---
Hospitalist Progress Note Assessment/Plan: 87yo F with history of CVA presented with dysarthria and extremity clumsiness found to have acute ischemic CVA with new atrial fibrillation. Her neurologic deficits have largely resolved. This is my first encounter with the patient. #Atrial fibrillation with RVR: Rates still high. Asymptomatic, BP stable. [id number]. Cardiology following. - Diltiazem 30mg q8h started this AM - Continue metoprolol 50mg BID - Telemetry - Waiting to initiate anticoagulation for 10 days from CVA - Had long discussion with patient and daughter re: anticoagulation options and why we are not cardioverting (either chemically or electrically) at this time. They want to think about DOAC vs warfarin. - Has follow up appointment with cardiology on 05/01, which will be when anticoagulation can be started #Acute ischemic CVA: R frontoparietal and temporal lobes. Likely embolic from above. Neuro deficits resolved. - Continue statin, clopidogrel. Plan to discontinue antiplatelets when AC started as above - PT/OT #HTN: A bit high at times but mostly controlled - BB, CCB as above in addition to home losartan #Asthma: No flare - Albuterol prn PPx: Lovenox Diet: Regular Code: DNR Dispo: Keep inpatient for better rate control. Hopefully discharge tomorrow to daughter's home with home PT/OT. Subjective: Feeling well this morning. Denies palpiations, chest pain, dyspnea, leg swelling. Objective: Vital Signs Temp Pulse Resp BP Pulse Ox 36.7 C 91 32 H 139/88 H 96 04/24/18 15:34 04/24/18 15:34 04/24/18 15:34 04/24/18 15:34 04/24/18 15:34 04/23/18 04/24/18 04/25/18 05:59 05:59 05:59 Intake Total 1090 350 Output Total 300 Balance 790 350 PT 13.7 SEC (12.0-15.0) 04/21/18 18:46 INR 1.03 (0.83-1.16) 04/21/18 18:46 - Physical Exam Constitutional: no apparent distress, appears nourished, not in pain Eyes: PERRL, anicteric sclera, EOMI Ears, Nose, Mouth, Throat: moist mucous membranes, hearing normal, ears appear normal, no oral mucosal ulcers Cardiovascular: no murmur, rub, or gallop, tachycardia (irregularly irregular), No JVD, No edema Respiratory: no respiratory distress, no rales or rhonchi, clear to auscultation Gastrointestinal: normoactive bowel sounds, soft, non-tender abdomen, no palpable masses Skin: no rashes or abrasions, no fluctuance, no induration Musculoskeletal: full muscle strength, no muscle tenderness, normal joint ROM Neurologic: AAOx3 Psychiatric: interacting appropriately, not anxious, not encephalopathic, thought process linear ICD10 Worksheet Patient Problems: Problems Problem Status Onset TIA (transient ischemic attack) Acute
[2018-04-24] MEDS: FAMOTIDINE 20 MG TAB PO SCH (20:34)
[2018-04-24] MEDS: MELATONIN 3 MG TAB PO PRN (20:34)
[2018-04-24] MEDS: ALBUTEROL 60 PUFFS/8 GM MDI IH SCH (20:36)
[2018-04-25] MEDS: DILTIAZEM 30 MG TAB PO SCH ×2 (01:15→09:20)
[2018-04-25] MEDS: MULTIVITAMINS 1 EACH TAB PO SCH (09:21)
[2018-04-25] MEDS: METOPROLOL TARTRATE 50 MG TAB PO SCH (09:21)
[2018-04-25] MEDS: FUROSEMIDE 20 MG TAB PO SCH (09:21)
[2018-04-25] MEDS: LISINOPRIL 20 MG TAB PO SCH (09:21)
[2018-04-25] MEDS: CLOPIDOGREL BISULFATE 75 MG TAB PO SCH (09:21)
[2018-04-25] MEDS: FLUNISOLIDE NASAL 200 SPRAYS/25 ML MDI NS SCH (09:22)
[2018-04-25] MEDS: ENOXAPARIN 40 MG/0.4 ML SYR SC SCH (09:22)
[2018-04-25] MEDS: ATORVASTATIN CALCIUM 40 MG TAB PO SCH (09:22)
--- NOTE | 2018-04-25 11:54 | PDCARPN ---
Cardiology Progress Note Chief Complaint: New CVA likely cardioembolic from AF Assessment/Plan: Assessment: 87-year-old F with PMH of multiple CVAs, hypertension, and asthma. Admitted on 04/22/2018 with dysarthria and clumsiness. MRI has found acute cortical ischemic infarction in the right supratentorium with suspected emboli. Noted to be in AFib with RVR. Neurology has recommended not starting full anticoagulation for the next 10 days. Continue on home dose of clopidogrel whic. Echocardiogram did note low-normal LV systolic function, no wall motion abnormalities, valvular heart disease including severe MR, tgpl-da-[id number] AI, awrr-eq-qjmaqimg TR, RVSP was estimated at 58 mm Hg. #. PAF: likely etiology of stroke Rate control appears improved/ will change to Dilt XR 120 mg daily Per neurology's recommendation, patient should not be fully anticoagulated for at least 10 days post CVA (until the 05/01-05/02) they have appt with [facility] for 10 days #. CVA: Patient reports no gross motor deficit. #. VHD: Severe MR, mild-mod TR, mild-mod AR with PHTN appears euvolemic continue Lasix we discussed MR may be worsened due to AF pt can d/w [facility] #. Hyperlipidemia: on Atorvastatin with LDL 23 #. Hypertension: BP will tolerate uptitration of Dilt Plan: - Change to Dilt XR - OK to d/c from cardiology perspective with outpatient follow up 04/25/18 11:16 Subjective: No pain. Has been coughing. Reviewed/Discussed With: hospitalist (Dr. Borrego) Objective: Vital Signs (8 Hrs) Temp Pulse Resp BP Pulse Ox 04/25/18 08:00 97.9 F 119 H 20 158/94 H 90 L 04/25/18 04:00 98.1 F 102 H 18 138/90 H 92 Intake/Output (24 Hrs) 04/24/18 04/25/18 04/26/18 05:59 05:59 05:59 Intake Total 350 900 Balance 350 900 Intake: Oral (ml) 350 900 Other: Intake Quantity Yes Yes Sufficient Number of Voids Toilet 1 1 Result Diagrams: 04/22/18 04:18 04/22/18 04:18 EKG: AF Echocardiogram: reviewed - Physical Exam Constitutional: no apparent distress Eyes: PERRL, anicteric sclera Ears, Nose, Mouth, Throat: moist mucous membranes Cardiovascular: systolic murmur, irregularly irregular Respiratory: clear to auscultate bilat, no crackles Gastrointestinal: normoactive bowel sounds Skin: no rashes, no edema Neurologic: AAOx3 Psychiatric: cooperative ICD10 Worksheet Patient Problems: Problems Problem Status Onset TIA (transient ischemic attack) Acute
[2018-04-25] MEDS ORDERED: DILTIAZEM CD 120 MG CAP PO SCH (12:00)
--- NOTE | 2018-04-25 12:14 | PDIAF ---
- Diagnosis Code Status: Do Not Resuscitate - Medication Management Discharge Medications: Medications to Continue on Transfer Albuterol [Proventil Inhaler HFA (*)] 2 puffs IH HS 04/21/18 [Last Taken ] Atorvastatin Calcium [Lipitor 40 mg (*)] 40 mg PO DAILY 04/21/18 [Last Taken ] Clopidogrel Bisulfate [Plavix (*)] 75 mg PO DAILY 04/21/18 [Last Taken 04/21/18] Flunisolide Nasal [Nasarel Nasal [place]] 2 sprays NS BID 04/21/18 [Last Taken ] Furosemide [Lasix 20 MG (*)] 20 mg PO DAILY 04/21/18 [Last Taken 04/21/18] Hydrocodone/Acetaminophen [[place] 5/325 (*)] 1 each PO BID PRN 04/21/18 [Last Taken 04/21/18] Lisinopril [Zestril 20 mg (*)] 20 mg PO DAILY 04/21/18 [Last Taken 04/21/18] Multivitamins [Multivitamin (*)] 1 each PO DAILY 04/21/18 [Last Taken 04/21/18] Ranitidine HCl [Zantac] 150 mg PO HS 04/21/18 [Last Taken 04/20/18] Diltiazem Cd [Cardizem ER 120 MG (*)] 120 mg PO DAILY #30 cap 04/25/18 [Last Taken Unknown] Metoprolol Tartrate [Lopressor 50 mg (*)] 50 mg PO BID #60 tab 04/25/18 [Last Taken Unknown] Discharge Medications: Refer to the Discharge Home Medication list for PRN reason. - Orders Services needed: Home Care, Physical Therapy Home Care Face to Face: I certify that this patient was under my care and that I had the required [id number] encounter meeting the encounter requirements on the discharge day. My findings support the fact that the patient is homebound as defined in Home Care Face to Face Continued: CMS Chapter 7 Medicare Benefits Manual 30.1.1 , The condition of the patient is such that there exists a normal inability to leave home and consequently, leaving home would require a considerable and taxing effort. Additional Instructions: Here are your discharge instructions: 1. We have started you on two new medications - metoprolol (twice daily) and diltiazem (once daily) to help with your heart rate. 2. We have discontinued your atenolol. 3. Continue taking your clopidogrel (plavix) for now. 4. Please keep the appointment with the [facility] turntable man next Friday. At that time, it is ok for you to be started on anticoagulation either with warfarin or one of the newer medications such as apixaban (eliquis). Once you do get started on an anticoagulant, you should discontinue your clopidogrel. 5. You should be set up with home health physical therapy. - Follow Up Care Current Providers and Referrals: Patient,NotPresent [Unknown] - As per Instructions
[2018-04-25 12:17] VITALS: BP 130/96
--- NOTE | 2018-04-25 14:07 | ASDISCHSUM ---
Discharge Information Plan Status:Home with Home Health Medically Cleared to Leave:04/25/2018 Discharge Date:04/25/2018 12:48 PM D/C Disposition:Home Health Service [facility] D/C Disposition:[id number] Projected Discharge Date:04/25/2018 11:00 AM Transportation at D/C:Family Discharge Delay Reason: Follow-Up Date:04/25/2018 11:00 AM Discharge Slot: Final Diagnosis: Placement Information Referral Type:*Home Health Care Services Referral ID:[id number] Provider Name:[facility] Address 1:[address] Address 2: City:[place] Selection Factors: State:[place] Patient Contact Information Contact Name:CELY Relationship:Daughter Address: Work Phone: [facility]:[place] Alternate Phone: [facility] Code:[place] Email: Financial Information Financial Class:Medicare Advantage Plans Primary Plan Desc:[employer] ADV IP Primary Plan Number:[id number] Secondary Plan Desc: Secondary Plan Number: Assessment Information LACE LACE Length of stay for Answers: 4-6 days current admission Acuity / Level of Answers: Yes Care: Did the patient have an inpatient admission? Comorbidities - select Answers: Cerebrovascular disease all that apply (CVA, TIA, aneurysms, vasc ular dementia) Opioid dependence / Chronic pain Other Notes: HTN # of Emergency department Answers: 1-2 visits in the last 6 months Score: 14 Date Signed: 04/25/2018 02:06 PM Electronically Signed By:Katelyn Mathias [facility] CM Progress Note CM Note CM Note Notes: Pt with history multiple CVAs came to ED with possible TIA. Symptoms resolved at arrival and afib indicated. Neurology consulting. PT eval pending, OT/TRAINING AND DEVELOPMENT COORDINATOR rec home. Pt resides alone and has htr in [place]. CM to follow for d/c planning. Date Signed: 04/22/2018 03:59 PM Electronically Signed By:NATHALIA Hicks [facility] CM Progress Note CM Note CM Note Notes: PT rec HHC vs. d/c to [facility] home. Spoke with pt and dghtr Flora about PT rec, pt amenable [facility] [place] [facility] few days for supervision. Pt and dghtr will discuss HHC PT and let CM know if they are interested. Pt can start HHC at [facility] and then transition the service to her home in [place]. CM to follow. Date Signed: 04/23/2018 03:51 PM Electronically Signed By:NATHALIA Hicks [facility] CM Progress Note CM Note CM Note Notes: Pt to be monitored on cardiac meds. D/c plan remains d/c to [facility] and pt to decide if she wants HHC Date Signed: 04/24/2018 04:02 PM Electronically Signed By:NATHALIA Hicks Case Management Discharge Plan Note Case Management Discharge Discharge Order Complete? Answers: Yes Patient to Obtain Answers: via Family Medications Transportation Arranged Answers: Family/Friends Agency/Facility Transfer Answers: Yes Report Printed & Faxed to Receiving Agency Family Notified Answers: Yes Notes: in room Discharge Comments Notes: Pt discharged to daughter's home with [facility] PT/OT through [facility]. Referral to agency updated. Spoke with pt and dtr who are amenable to the plan. No further CM needs noted at this time. CM available should needs change. Date Signed: 04/25/2018 02:05 PM Electronically Signed By:Katelyn Mathias Intervention Information Intervention Type:*IM-Signed Date of Service:04/24/2018 02:44 PM Patient Type:Inpatient Staff Member:Rosetta Ying Hours: Discipline: Severity: Comment:
--- NOTE | 2018-04-26 08:23 | PDDCSUM ---
Discharge Summary Discharge Summary: Date of Admission: 04/21/2018 Date of Discharge: 04/25/2018 Disposition: To daughter's home with home PT Consultants: neurology, cardiology Procedures/Studies: MRI brain, CTA head/neck, TTE Discharge Diagnoses: 1. Acute ischemic CVA 2. Atrial fibrillation with RVR 3. Severe mitral regurgitation 4. Pulmonary hypertension 5. Systemic HTN 6. Osteoporosis 7. Degenerative disc disease Hospital Course: 87yo F with history of several CVAs without significant deficits but without clear source presented with dysarthria and extremity clumsiness found to have acute ischemic CVA in R frontotemporal and parietal lobes. Her work up revealed atrial fibrillation and thus it was felt her strokes were embolic in nature. Her neurologic deficits have resolved. She was discharged with home PT. She is on a statin. Regarding her afib, she has severe MR which certainly predisposes her. Cardiology was consulted and her rates were modestly controlled with metoprolol and diltiazem. She has a [id number] of 6, so anticoagulation is warranted; however, neurology recommended waiting 10 days after CVA until starting (on 05/01 ). In the meantime, she was continued on clopidogrel which can be stopped once AC is started. She has follow up with cardiology on 05/01 at [facility]. She is on a daily diuretic and was euvolemic at discharge. Medications: Please refer to EMR for complete list. Changes this admission include discontinuing atenolol and starting metoprolol and diltiazem. Follow Up Plan: 1. Cardiology appointment next Friday at [facility] to monitor HR, discuss plan for afib, discuss plan for MR 2. Plan to start anticoagulation (discussed warfarin vs DOAC) on 05/01 at cardiology appointment Physical Exam: Vitals and telemetry reviewed, average HR 90s in afib. Alert and oriented without focal neurologic deficits except hard of hearing (chronic). Irregularly irregular on cardiac exam. Lungs clear. No JVD or leg edema. Abdomen soft.
== END 2018-04-25 12:48 | disposition home health service (06) | DRG 66 ==
LOC: INTOOBSV 16:11 → F3N 17:40 → OBSVTOIN 04-22 16:22
PROVIDERS: ADMIT Student in an Organized Health Care Education/Training Program; ATTEND Student in an Organized Health Care Education/Training Program
DX: I63.9 Cerebral infarction, unspecified (principal); I48.0 Paroxysmal atrial fibrillation; I27.20 Pulmonary hypertension, unspecified; E78.5 Hyperlipidemia, unspecified; Z66 Do not resuscitate; I34.0 Nonrheumatic mitral (valve) insufficiency; I10 Essential (primary) hypertension; M81.0 Age-related osteoporosis without current pathological fracture; Z86.73 Personal history of transient ischemic attack (TIA), and cerebral infarction without residual deficits; Z79.01 Long term (current) use of anticoagulants
CPT/HCPCS: 82435-PO; 82565-PO; 82947-PO; 84132-PO; 84295-PO; 84520-PO; 85014-PO; 92523-GN; 97116-GP; 97162-GP; 97166-GO; G0378; G8978-GP-CJ; G8979-GP-CI; J1650